=== PATIENT | female | born 1960 | race Caucasian/White ===

== ENCOUNTER → 2023-10-06 12:07 | Outpatient (REF) | payer BC, SELFPAY | LOC: HWRAD 12:07 | PROVIDERS: ATTENDING PHYSICIAN Physician Assistant; FAMILY PHYSICIAN Family Medicine; OTHER PHYSICIAN Internal Medicine Rheumatology | DX: L52 Erythema nodosum (principal); M06.00 Rheumatoid arthritis without rheumatoid factor, unspecified site; M06.4 Inflammatory polyarthropathy | CPT/HCPCS: 71046 ==

== ENCOUNTER → 2023-11-17 16:42 | Outpatient (REF) | payer BC, SELFPAY | LOC: HWWDC 16:42 | PROVIDERS: ATTENDING PHYSICIAN Obstetrics & Gynecology Gynecology; FAMILY PHYSICIAN Family Medicine | DX: Z12.31 Encounter for screening mammogram for malignant neoplasm of breast (principal) | CPT/HCPCS: 77063; 77067 ==

== ENCOUNTER → 2024-12-29 12:19 | Outpatient (REF) | payer BC, SELFPAY | LOC: HWWDC 12:19 | PROVIDERS: ATTENDING PHYSICIAN Obstetrics & Gynecology Gynecology; FAMILY PHYSICIAN Family Medicine | DX: Z12.31 Encounter for screening mammogram for malignant neoplasm of breast (principal) | CPT/HCPCS: 77063; 77067 ==